=== PATIENT | male | born 1960 | race Caucasian/White ===

== ENCOUNTER → 2022-06-18 | Outpatient (CLI) | payer OTHER ==
--- NOTE | 2022-06-18 14:35 | CT ---
EXAMINATION TYPE: CT brain wo con DATE OF EXAM: 06/18/2022 HISTORY: Headache CT DLP: 1090.4 mGycm. Automated Exposure Control for Dose Reduction was Utilized. TECHNIQUE: CT scan of the head is performed without contrast. COMPARISON: None. FINDINGS: There is no acute intracranial hemorrhage or midline shift identified. There is mild diff use ventricular and sulcal prominence consistent with diffuse age-related cerebral atrophy. Aguilera-whit e matter differentiation fairly well-maintained. The globes are intact and the visualized sinuses ar e clear. IMPRESSION: No acute intracranial hemorrhage or midline shift. There is mild diffuse age-related ce rebral atrophy noted.
== END | disposition home or self-care (01) ==
LOC: RADCTMAIN 13:21
DX: G31.1 Senile degeneration of brain, not elsewhere classified (principal); R51.9 Headache, unspecified
CPT/HCPCS: 70450